=== PATIENT | female | born 1990 | race American Indian/Alaskan Native ===

== ENCOUNTER 2017-01-25 10:11 | Observation (INO) | payer OTHER ==
[2017-01-25 10:21] VITALS: TEMP 98.8
[2017-01-25] MEDS ORDERED: diaZEpam 10 mg/2 ml Inj IVP ONE (11:02)
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
--- NOTE | 2017-01-25 12:45 | CT ---
PROCEDURE: CT HEAD WITHOUT CONTRAST. HISTORY: headache COMPARISON: None available. TECHNIQUE: Axial computed tomography images were obtained through the head/brain without intravenous contrast. Radiation dose: Total exam DLP = 725.84 last mGy-cm. This CT exam was performed using one or more of the following dose reduction techniques: Automated exposure control, adjustment of the mA and/or kV according to patient size, and/or use of iterative reconstruction technique. FINDINGS: HEMORRHAGE: No intracranial hemorrhage. BRAIN: No mass effect or edema. No atrophy or chronic microvascular ischemic changes. VENTRICLES: Unremarkable. No hydrocephalus. CALVARIUM: Unremarkable. PARANASAL SINUSES: Unremarkable as visualized. No significant inflammatory changes. MASTOID AIR CELLS: Unremarkable as visualized. No inflammatory changes. OTHER FINDINGS: None. IMPRESSION: Normal CT of the Head. No acute intracranial abnormalities. No significant findings to account for the clinical presentation.
[2017-01-25] MEDS ORDERED: Morphine 2 mg/ml ISec IVP STA ×2 (13:10→13:56)
[2017-01-25 13:21] VITALS: O2SAT 100
[2017-01-25 17:03] VITALS: BP 116/70; PULSE 72; RESP 16
== END 2017-01-25 16:45 | disposition home or self-care (01) ==
LOC: ED 10:11 → MERGE 14:54 → EROBSV 14:54
PROVIDERS: ADMIT Emergency Medicine; ATTEND Emergency Medicine
DX: M43.6 Torticollis (principal); R51 Headache
CPT/HCPCS: 70450; 96374; 96375; 96376; 99285; G0378; J1885; J2270; J2765; J3360